=== PATIENT | female | born 1950 | race Hispanic/Latino ===

== ENCOUNTER 2017-11-05 15:41 | Outpatient (CLI) | payer MEDICARE, MEDICAID ==
--- NOTE | 2017-11-05 17:11 | RAD ---
RIGHT KNEE FOUR VIEWS: 11/05/17 HISTORY: Anterior right knee pain. COMPARISON: None. FINDINGS: Mild patellofemoral compartment and lateral compartment degenerative change. There is mild degenerati ve of the medial compartment. No fracture or dislocation. No significant joint effusion. IMPRESSION: Degenerative change of the right knee. POS: [facility]
== END 2017-11-05 15:42 | disposition home or self-care (01) ==
LOC: MADRAD 15:41
PROVIDERS: ATTEND Family Medicine
DX: M25.561 Pain in right knee (principal); M17.11 Unilateral primary osteoarthritis, right knee